=== PATIENT | female | born 1940 | race Caucasian/White ===

== ENCOUNTER 2019-03-30 17:10 | Emergency (ER) | payer MEDICARE, OTHER | END 2019-03-30 23:08 | disposition home or self-care (01) | LOC: FTE 17:10 | DX: S79.911A Unspecified injury of right hip, initial encounter (principal); W18.39XA Other fall on same level, initial encounter; Y92.9 Unspecified place or not applicable | CPT/HCPCS: 76536; 93971; 99284-25 ==